=== PATIENT | male | born 1965 | race Caucasian/White ===

== ENCOUNTER 2018-03-29 17:32 | Emergency (ER) | payer SELFPAY ==
[2018-03-29 18:09] VITALS: BP 153/97
--- NOTE | 2018-03-29 18:30 | UC ---
Knee Pain HPI - HPI Summary HPI Summary: The patient is a 52-year-old male that developed right knee pain on or about February 10 of this year. He attributes this pain to swimming with fins. 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 He had numerous needles stuck in or about the knee. The next day his right knee was more painful and swollen. He i traveled to [facility] and was seen by a herbalist there. The Herbs did not help. He was later seen at a [facility] in [facility] where he had his right knee aspirated. 3 syringes so clear yellow fluid were removed. His knee feels normal or near normal when he is not on anti -inflammatory medicines. He was later seen twice in [place] by an orthopedist who felt his symptoms would improve on their own. He stopped taking anti-inflammatories about a week ago and his knee has gotten more painful and has swollen. It has not been red or hot. His knee has not buckled or given away... States he will be in the area for about 10 days. - History of Current Complaint Chief Complaint: UCLowerExtremity Stated Complaint: KNEE SWELLING Time Seen by Provider: 03/29/18 18:09 Hx Obtained From: Patient Onset/Duration: Gradual Onset, Lasting Weeks Severity Initially: Mild Severity Currently: Moderate Pain Intensity: 5 Pain Scale Used: 0-10 Numeric Character: Aching Aggravating Factor(s): Movement Alleviating Factor(s): Rest, OTC Meds Able to Bear Weight: Yes - Allergies/Home Medications Allergies/Adverse Reactions: Allergies Allergy/AdvReac Type Severity Reaction Status Date / Time clavulanic acid Allergy Hives Verified 03/29/18 18:11 Home Medications: Home Medications Arcoxia 120 mg PO DAILY PRN 03/29/18 [History Confirmed 03/29/18] PMH/Surg Hx/FS Hx/Imm Hx Previously Healthy: Yes - Surgical History Surgical History: Yes Surgery Procedure, Year, and Place: arthroscopy of rt knee and miniscus - Family History Known Family History: Positive: Hypertension - Social History Alcohol Use: Weekly Substance Use Type: None Smoking Status (MU): Never Smoked Tobacco Review of Systems Constitutional: Negative Skin: Negative Eyes: Negative ENT: Negative Respiratory: Negative Cardiovascular: Negative Gastrointestinal: Negative Genitourinary: Negative Motor: Negative Neurovascular: Negative Musculoskeletal: Arthralgia Neurological: Negative Psychological: Negative All Other Systems Reviewed And Are Negative: Yes Physical Exam Triage Information Reviewed: Yes Appearance: Well-Appearing, No Pain Distress, Well-Nourished Vital Signs: Initial Vital Signs Temp 99.1 F 03/29/18 17:57 Pulse 63 03/29/18 17:57 Resp 16 03/29/18 17:57 BP 153/97 03/29/18 17:57 Pulse Ox 97 03/29/18 17:57 Vital Signs Reviewed: Yes Eyes: Positive: Conjunctiva Clear ENT: Positive: Hearing grossly normal. Negative: Nasal congestion, Nasal drainage, Trismus, Muffled voice, Hoarse voice Neck: Positive: Supple, Nontender, No Lymphadenopathy Respiratory: Positive: Lungs clear, Normal breath sounds, No respiratory distress Cardiovascular: Positive: RRR, No Murmur Musculoskeletal: Positive: ROM Limited @ - right knee ...due to effusion, Other : - stable and nontender joint, not red or hot to touch, slightly antalgic gait Neurological: Positive: Alert Psychological Exam: Normal Skin Exam: Normal Knee Pain Course/Dx - Course Course Of Treatment: I suggested he see a sportsmedicine specialist or othopedist for evaluation - Differential Dx/Diagnosis Provider Diagnoses: right knee effusion Discharge - Sign-Out/Discharge Documenting (check all that apply): Patient Departure All imaging exams completed and their final reports reviewed: No Studies - Discharge Plan Condition: Stable Disposition: HOME Patient Education Materials: Swollen Knee Joint (ED) Referrals: [facility] [Outside] - As Soon As Possible Rd Roberts MD [Medical Doctor] - As Soon As Possible Additional Instructions: I suggest you follow up with a specialist for evaluation of your knee effusion It may benefit from a cortisone injection Continue anti inflammatory - Billing Disposition and Condition Condition: STABLE Disposition: Home
== END 2018-03-29 18:37 | disposition home or self-care (01) ==
LOC: UCEAST 17:32
DX: M25.461 Effusion, right knee (principal)
CPT/HCPCS: 99211; G0463